=== PATIENT | female | born 1990 ===

== ENCOUNTER 2020-07-04 05:35 | Inpatient (IN) | payer OTHER ==
[~2020-07-04] VITALS: Ht 160 cm; Wt 95.7 kg
[2020-07-04] MEDS ORDERED: PRENATAL TABLE1 EAC1 PO (08:01)
[2020-07-04] MEDS ORDERED: SYNTHROID50 MCG PO (08:03)
== END 2020-07-06 11:53 | disposition home or self-care (01) | DRG 807 ==
LOC: LDR 05:35 → OB/GYN 15:51
PROVIDERS: ADMIT Obstetrics & Gynecology; ATTEND Obstetrics & Gynecology
PROC: 10E0XZZ Delivery of Products of Conception, External Approach (ICD-10-PCS; principal; 2020-07-04)
PROC: 4A1HXFZ Monitoring of Products of Conception, Cardiac Rhythm, External Approach (ICD-10-PCS; 2020-07-04)
PROC: 3E033VJ Introduction of Other Hormone into Peripheral Vein, Percutaneous Approach (ICD-10-PCS; 2020-07-04)
DX: O24.420 Gestational diabetes mellitus in childbirth, diet controlled (principal); Z37.0 Single live birth; O70.0 First degree perineal laceration during delivery; Z3A.39 39 weeks gestation of pregnancy; Z20.828 Contact with and (suspected) exposure to other viral communicable diseases

== ENCOUNTER 2023-02-12 11:21 | Outpatient (CLI) | payer OTHER ==
[~2023-02-12 11:21] MED LIST: PRENATAL TABLE1 EAC1 PO; SYNTHROID50 MCG PO
== END 2023-02-12 12:48 | disposition home or self-care (01) ==
LOC: NST 11:21
PROVIDERS: ATTEND Obstetrics & Gynecology
DX: Z34.82 Encounter for supervision of other normal pregnancy, second trimester (principal)

== ENCOUNTER 2023-04-12 08:40 | Outpatient (CLI) | payer OTHER | END 2023-04-12 09:28 | disposition home or self-care (01) | LOC: NST 08:40 | PROVIDERS: ATTEND Obstetrics & Gynecology Maternal & Fetal Medicine | DX: Z34.83 Encounter for supervision of other normal pregnancy, third trimester (principal) ==

== ENCOUNTER → 2023-05-07 09:42 | Outpatient (CLI) | payer OTHER | END | disposition home or self-care (01) | LOC: NST 09:42 | PROVIDERS: ATTEND Obstetrics & Gynecology Gynecology | DX: O09.93 Supervision of high risk pregnancy, unspecified, third trimester (principal); Z3A.36 36 weeks gestation of pregnancy ==

== ENCOUNTER → 2023-05-08 09:42 | Outpatient (CLI) | payer OTHER ==
[~2023-05-08 09:42] MED LIST changes: +CHILDREN'S ASPI81 MG PO; +FUSION PLUS CA1 EACH PO; +LABETALOL HCL200 MG PO; +PRENATABS RX T1 EACH PO
== END | disposition home or self-care (01) ==
LOC: NST 09:42
PROVIDERS: ATTEND Obstetrics & Gynecology
DX: Z34.83 Encounter for supervision of other normal pregnancy, third trimester (principal)

== ENCOUNTER 2023-05-08 14:50 | Inpatient (IN) | payer OTHER ==
[~2023-05-08] VITALS: Ht 160 cm; Wt 98.9 kg
[~2023-05-08 14:50] MED LIST changes: -CHILDREN'S ASPI81 MG PO; -FUSION PLUS CA1 EACH PO; -LABETALOL HCL200 MG PO; -PRENATABS RX T1 EACH PO
[2023-05-09] MEDS ORDERED: CHILDREN'S ASPI81 MG PO (08:45)
[2023-05-09] MEDS ORDERED: LABETALOL HCL200 MG PO (08:45)
[2023-05-09] MEDS ORDERED: FUSION PLUS CA1 EACH PO (08:46)
[2023-05-09] MEDS ORDERED: PRENATABS RX T1 EACH PO (08:46)
== END 2023-05-13 12:06 | disposition home or self-care (01) | DRG 787 ==
LOC: O/R 05-10 07:53 → OB/GYN 05-10 08:30 → LDR 05-10 16:31 → OB/GYN 05-10 20:42
PROVIDERS: Obstetrics & Gynecology Gynecology; ADMIT Obstetrics & Gynecology; ATTEND Obstetrics & Gynecology
PROC: 4A1HXCZ Monitoring of Products of Conception, Cardiac Rate, External Approach (ICD-10-PCS; 2023-05-10)
PROC: 10D00Z1 Extraction of Products of Conception, Low, Open Approach (ICD-10-PCS; principal; 2023-05-10 08:30)
DX: O30.043 Twin pregnancy, dichorionic/diamniotic, third trimester (principal); O10.02 Pre-existing essential hypertension complicating childbirth; O99.824 Streptococcus B carrier state complicating childbirth; Z3A.37 37 weeks gestation of pregnancy; Z37.2 Twins, both liveborn; Z20.822 Contact with and (suspected) exposure to COVID-19